=== PATIENT | male | born 1945 | race Caucasian/White ===

== ENCOUNTER → 2019-10-08 | Outpatient (CLI) | payer MEDICARE ==
[2019-10-08 16:52] LABS: Potassium 4.1 mmol/L (3.5-5.1)
[2019-10-08 17:02] LABS: Basophils # (A) 0.1 k/uL (0-0.2); Basophils % (A) 1 %; Eosinophils # (A) 0.2 k/uL (0-0.7); Eosinophils % (A) 2 %; HCT 38.2 % (39.0-53.0); Hypochromasia Slight; Lymphocytes # (A) 1.7 k/uL (1.0-4.8); Lymphocytes % (A) 14 %; MCHC 31.4 g/dL (31.0-37.0); Monocytes # (A) 0.6 k/uL (0-1.0); Monocytes % (A) 5 %; Neutrophils # (A) 9.3 k/uL (1.3-7.7); Neutrophils % (A) 77 %; Platelet Count 245 k/uL (150-450); RBC 4.29 m/uL (4.30-5.90); RDW 13.5 % (11.5-15.5)
--- NOTE | 2019-10-10 16:26 | XR ---
"EXAMINATION TYPE: XR chest 2V DATE OF EXAM: 10/08/2019 COMPARISON: NONE HISTORY: Presurgical TECHNIQUE: Frontal and lateral views of the chest are obtained. FINDINGS: Asymmetric increased density is present superimposed over the right lower lung on the front al view. There are increased lung volumes present consistent with underlying COPD. There are overlyin g artifacts. Biapical pleural thickening is present. Patient is rotated. Aorta is dense. Exam is limi maynor due to patient's inability to cooperate. There is no pleural effusion or pneumothorax seen. The cardiac silhouette size is within normal limits. The osseous structures are intact, suspect a spina l curvature. IMPRESSION: Difficult to exclude right lower lobe or right middle lobe lung mass, recommend chest CT A Yellow level critical message alert has been initiated for Desean Baig MD via the [employer] 36 0 | Critical Results System on 10/10/2019 4:23 PM. This message alert has been sent to Desean Baig MD via the preferences provided by the clinician for the receipt of Radiology Critical Findings. [facility] ID [id number]."
== END | disposition home or self-care (01) ==
LOC: LABPAT 16:02
PROVIDERS: ATTEND Orthopaedic Surgery
DX: Z01.818 Encounter for other preprocedural examination (principal); Z01.812 Encounter for preprocedural laboratory examination; S42.222D 2-part displaced fracture of surgical neck of left humerus, subsequent encounter for fracture with routine healing; Z51.81 Encounter for therapeutic drug level monitoring
CPT/HCPCS: 71046; 80051; 85025; 85610; 87070; 93005

== ENCOUNTER 2019-10-11 20:29 | Emergency (ER) | payer MEDICARE ==
[2019-10-11 20:48] VITALS: BP 162/93; PULSE 83; RESP 20; TEMP 98.4
--- NOTE | 2019-10-11 21:37 | XR ---
EXAMINATION TYPE: XR shoulder complete LT DATE OF EXAM: 10/11/2019 COMPARISON: NONE HISTORY: Edema. Pain. TECHNIQUE: 3 views FINDINGS: There is impacted comminuted left humeral neck fracture. There is more than 50% offset. The re is no dislocation. Scapula is intact. Clavicle appears intact. IMPRESSION: Comminuted impacted displaced humeral neck fracture.
--- NOTE | 2019-10-11 21:44 | XR ---
EXAMINATION TYPE: XR elbow limited LT DATE OF EXAM: 10/11/2019 COMPARISON: NONE HISTORY: Pain TECHNIQUE: 2 views FINDINGS: There is soft tissue swelling around the elbow joint. I see no fracture nor dislocation. Th ere is subcutaneous edema. IMPRESSION: Subcutaneous edema. No fracture seen.
[2019-10-11] MEDS ORDERED: MORPHINE SULFATE 2 MG/ML SYRINGE IM STA (21:50)
--- NOTE | 2019-10-11 22:13 | ED ---
Recheck HPI - General Chief Complaint: Recheck/Abnormal Lab/Rx Stated Complaint: Arm Injury Time Seen by Provider: 10/11/19 21:03 Source: patient Mode of arrival: ambulatory Limitations: no limitations - History of Present Illness Initial Comments: 73-year-old male with a recent diagnosis of left humerus fracture scheduled for surgery on Saturday presenting for persistent pain patient prescribed tramadol for pain management he states this is not working. Patient also states he has had increasing bruising and swelling distal to the area of fracture. Patient denies any anticoagulation use patient denies any rapid expansion over the course of our she states it has been gradually over the past 5 days since the fall on ice that caused the fracture. Patient denies any other ocmplaints. Denies wrist drop, denies loss of sensation or weakness, coolness or pallor of extremity. Remaining ROS (-)> upon arrival patient in sling. - Related Data Home Medications Medication Instructions Recorded Confirmed traMADol HCl [Ultram] 50 mg PO Q6HR PRN 10/09/19 10/09/19 Previous Rx's Medication Instructions Recorded HYDROcodone/APAP 5-325MG [[place] 5] 1 each PO Q6HR PRN 3 Days #12 tab 10/11/19 Allergies Allergy/AdvReac Type Severity Reaction Status Date / Time No Known Allergies Allergy Verified 10/11/19 20:48 Review of Systems ROS Statement: Those systems with pertinent positive or pertinent negative responses have been documented in the HPI. ROS Other: All systems not noted in ROS Statement are negative. Past Medical History Past Medical History: No Reported History History of Any Multi-Drug Resistant Organisms: None Reported Additional Past Surgical History / Comment(s): prostate, hernia Past Psychological History: No Psychological Hx Reported Smoking Status: Former smoker Past Alcohol Use History: None Reported Past Drug Use History: None Reported General Exam - General Exam Comments Initial Comments: General: The patient is awake and alert, in no distress Eye: +3 mm pupils are equal, round and reactive to light, extra-ocular movements are intact. No nystagmus. There is normal conjunctiva bilaterally. No signs of icterus. Ears, nose, mouth and throat: There are moist mucous membranes and no oral lesions. Neck: The neck is supple, there is no tenderness or JVD. Cardiovascular: There is a regular rate and rhythm. No murmur, rub or gallop is appreciated. Respiratory: Lungs are clear to auscultation, respirations are non-labored, breath sounds are equal. No wheezes, stridor, rales, or rhonchi. Gastrointestinal: Soft, non-distended, non-tender abdomen without masses or organomegaly noted. There is no rebound or guarding present. Musculoskeletal: Swelling of the left UE and ecchymosis of the entire length of extremity, some yellowing noted. Various staging of bruising. no expanding hematomas noted. Strong radial pulses strength at the elbow and wrist 5 out of 5. Sensation intact patient is able to make the okay fingers crossed thumbs-up and oppose the small digit and thumb. Pain over the mid humerus. Compartments are soft and compressible Neurological: A&O x 3. CN II-XII intact grossly, There are no obvious motor or sensory deficits. Coordination appears grossly intact. Speech is normal. Skin: Skin is warm and dry and no rashes or lesions are noted. Psychiatric: Cooperative, appropriate mood & affect, normal judgment. Limitations: no limitations Course Vital Signs 10/11/19 20:45 Temperature 98.4 F Pulse Rate 83 Respiratory 20 Rate Blood Pressure 162/93 O2 Sat by Pulse 98 Oximetry Medical Decision Making - Medical Decision Making 73-year-old male presenting for left arm pain after fracture. No new falls/injury. Fracture redemonstrated on imaging studies which are requested from family. No evidence of elbow fracture. I feel these findings are consistent with patient's diagnosis, he has been keeping his left arm in a downward position for the past 5 days. Patient has no physical exam findings consistent with compartment syndrome. There is no expanding hematomas. Patient is not on anticoagulations therapy today feel patient could have increase in narcotic regimen with [place] instead of Ultram I did discuss the discontinuation of Ultram with substitution of [place] for more satisfactory relief. Patient is agreeable to this Plan discussed risks involved with using [place]. Patient verbalized understanding patient was placed back in sling and instructed to follow up for surgery on Saturday as scheduled. Return parameters were discussed's custody's attending provider Dr. Rivera who reviewed imaging studies. Disposition Clinical Impression: Left humeral fracture, Hx of fall, Left arm swelling Disposition: HOME SELF-CARE Condition: Good Instructions (If sedation given, give patient instructions): R.I.C.E. Treatment (ED) Additional Instructions: Please use medication as discussed. Please follow-up with orthopedic surgery in saturday as discussed-stop tking ultram if taking norco. Please return to emergency room if the symptoms increase or worsen or for any other concerns. Prescriptions: HYDROcodone/APAP 5-325MG [[place] 5] 1 each PO Q6HR PRN 3 Days #12 tab PRN Reason: Severe Pain Is patient prescribed a controlled substance at d/c from ED?: Yes When asked, does pt state using other controlled substances?: Yes If prescribed controlled substance>3 days was MAPS reviewed?: Prescribed <3 Days If opioid is for acute pain is fill amount 7 days or less?: Yes If Rx opioid, was Start Talking consent form obtained?: Yes Referrals: None,Stated [Primary Care Provider] - 1-2 days Yoandy Godinez DO [Doctor of Osteopathic Medicine] - 1-2 days Time of Disposition: 22:12
== END 2019-10-11 22:30 | disposition home or self-care (01) ==
LOC: EC 20:29
DX: S42.292A Other displaced fracture of upper end of left humerus, initial encounter for closed fracture (principal); Z87.891 Personal history of nicotine dependence; W19.XXXA Unspecified fall, initial encounter
CPT/HCPCS: 73030; 73070; 99283; 96372; J2270

== ENCOUNTER 2019-10-13 14:44 | Inpatient (IN) | payer MEDICARE ==
--- NOTE | 2019-10-12 09:26 | HP ---
HISTORY AND PHYSICAL CHIEF COMPLAINT: Left shoulder pain. HISTORY OF PRESENT ILLNESS: The patient is a 73-year-old, right-hand dominant, retired gentleman who presents after injuring his left shoulder on 10/06/2019. He slipped and fell on the ice, landing on his left shoulder. He was initially seen in the emergency room and placed in a sling. He denies previous problems. He notes severe pain and limitation after the injury. PAST MEDICAL HISTORY: Negative. CURRENT MEDICATIONS: Tramadol. PAST SURGICAL HISTORY: Negative. He denies drug allergies. FAMILY HISTORY: Significant for cancer and heart disease. SOCIAL HISTORY: Significant for previous tobacco use; however, he quit in 1963. 16 POINT REVIEW OF SYSTEMS: Otherwise reviewed and is noncontributory. PHYSICAL EXAMINATION: On examination, the patient is approximately 5 foot 8, 130 pounds of ectomorphic habitus. HEENT exam is nonfocal. Neck is supple. On examination of his left shoulder, he has large anterior swelling. He is tender over the proximal humerus. He has severely limited motion secondary to pain. He is nontender about the left elbow and wrist. His distal neurovascular appears intact in the left upper extremity. X-rays of the left shoulder obtained in the office show a displaced 2-part proximal humerus fracture. IMPRESSION: Significantly displaced left 2-part proximal humerus fracture. RECOMMENDATIONS: I talked to the patient at length regarding his condition and treatment options. He opts to proceed with surgery. Operative options were discussed to include open reduction and internal fixation versus reverse shoulder arthroplasty. With the degree of initial displacement and his bone quality, he opts to proceed with reverse arthroplasty. Risks and benefits were discussed at length in layman's terms. Will institute DVT prophylaxis postoperatively. MMODL / IJN: [id number] /
[~2019-10-13 14:44] MED LIST: ACETAMINOPHEN TAB 500 MG TAB PO ONE; HYDROmorphone 0.5 MG/0.5 ML SYRINGE IVP PRN; LIDOCAINE 1% 20 ML VIAL (10MG/ML) FOR IV START INTRADERMA PRN; ONDANSETRON 4 MG/2 ML VIAL IVP ONE; ONDANSETRON 4 MG/2 ML VIAL IVP PRN; TRANEXAMIC ACID 1,000 MG in SODIUM CHLORIDE 0.9% 100 ML IVPB ONE
[2019-10-13] MEDS: LACTATED RINGERS 1,000 ML IV SCH (15:25)
[2019-10-13] MEDS: DEXAMETHASONE SOD PHOSPHATE 10 MG/ML 1 ML VIAL IV ONE ×2 (15:30→15:40)
[2019-10-13] MEDS: MELOXICAM 7.5 MG TAB PO ONE ×2 (15:30→15:40)
[2019-10-13] MEDS ORDERED: MIDAZOLAM 2 MG/2 ML VIAL IVP ONE (15:43)
[2019-10-13] MEDS ORDERED: GABAPENTIN 300 MG CAP PO STA (16:01)
--- NOTE | 2019-10-13 16:07 | P.ANPRN ---
Procedure Note - Anesthesia - Nerve Block Performed Left Interscalene Single Time Out Performed: Yes ([id number]) Date of Procedure: 10/13/19 Procedure Start Time: 15:42 Procedure Stop Time: 15:48 Location of Patient: PreOp Indication: Acute Post-Operative Pain, Requested by Surgeon Specifically requested for management of pain by : Desean Baig Sedation Type: Sedate with meaningful contact maintained Preparation: Sterile Prep Position: Supine Catheter: None Needle Types: Pajunk Needle Gauge: 21 Ultrasound used to visualize needle placement: Yes Ultrasound used to observe medication spread: Yes Injectate: 0.5% Ropivacaine (see comment for volume) (20cc) Blood Aspirated: No Pain Paresthesia on Injection Noted: No Resistance on Injection: Normal Image Stored and Saved: Yes Events: Uneventful and Well Tolerated
[2019-10-13] MEDS ORDERED: SUCCINYLCHOLINE CHLORIDE 100 MG/5 ML SYR IV ONE (16:16)
[2019-10-13] MEDS ORDERED: TRANEXAMIC ACID 1,000 MG/10 ML VIAL ONE (16:16)
[2019-10-13] MEDS ORDERED: PHENYLEPHRINE-0.9% NACL SYG 1 MG/10 ML SYRINGE ONE (16:16)
[2019-10-13] MEDS ORDERED: ROPIVACAINE 5 MG/ML 30 ML VIAL ONE (16:16)
[2019-10-13] MEDS ORDERED: ROCURONIUM BROMIDE 10 MG/ML 10 ML VIAL IV ONE (16:16)
[2019-10-13] MEDS ORDERED: MIDAZOLAM 2 MG/2 ML VIAL ONE (16:16)
[2019-10-13] MEDS ORDERED: ePHEDrine SULFATE/0.9% NACL/PF 50 MG/5 ML SYRINGE IV ONE (16:16)
[2019-10-13] MEDS ORDERED: fentaNYL (PF) 50 MCG/ML 2 ML AMP ONE (16:16)
[2019-10-13] MEDS ORDERED: PROPOFOL 10 MG/ML 20 ML VIAL IV ONE (16:16)
[2019-10-13] MEDS ORDERED: SODIUM CHLORIDE 0.9% 100 ML BAG ONE (16:16)
[2019-10-13] MEDS ORDERED: ceFAZolin 1,000 MG in SODIUM CHLORIDE 0.9% 1,000 ML IRRIGATION ONE (16:45)
[2019-10-13] MEDS ORDERED: LACTATED RINGERS 1,000 ML IV ONE (17:46)
[2019-10-13] MEDS ORDERED: HYDROcodone/APAP 5-325MG 1 EACH TAB PO PRN (18:04)
[2019-10-13] MEDS ORDERED: HYDROmorphone 0.5 MG/0.5 ML SYRINGE IVP PRN (18:04)
--- NOTE | 2019-10-13 18:32 | P.OP ---
Date of Procedure: 10/13/19 Preoperative Diagnosis: Displaced left proximal humerus fracture2 part Postoperative Diagnosis: Same Procedure(s) Performed: Left reverse total shoulder arthroplasty Implants: [employer] Xtend size 10 long cemented humeral stem with a size 1 epiphysis, 42+3 articular surface, 42 mm glenosphere with standard baseplate Anesthesia: elif ALANIZ Surgeon: Desean Baig Racing Secretary #1: Kailash Parker Estimated Blood Loss (ml): 200 Pathology: other (Humeral head) Condition: stable Disposition: PACU Indications for Procedure: The patient is a 73-year-old male who presents after falling injuring his left shoulder. Upon evaluation he was noted have a significantly displaced left 2 part proximal humerus fracture with significant osteopenia. A discussion of the risks and benefits of operative intervention was made with the patient and his family. Operative options were discussed including attempted open reduction and internal fixation versus reverse arthroplasty. The opted to proceed with reverse arthroplasty. Risks of surgery to include infection, neurovascular injury, possible refracture, possible instability and need for subsequent procedures was discussed. Informed consent was obtained. Operative Findings: As below Description of Procedure: The patient was brought to the operating room, and after induction of general anesthesia was placed in a beachchair position. The bony prominences were appropriately padded. The left upper extremity was prepped and draped in normal fashion. The bony outlines the coracoid process, distal clavicle, and acromion were outlined with a skin marker. A pulse centimeter deltopectoral incision was made lateral to the coracoid process. Skin was incised sharply. Subcutaneous tissues were divided bluntly. Electrocautery was used for hemostasis. The cephalic vein was identified and gently retracted laterally with the deltoid. The deltopectoral was bluntly developed. Subdeltoid adhesions were then released. The self-retaining retractor was placed. The conjoined tendon was retracted medially and the deltoid laterally. The biceps was identified. Its sheath was opened. A biceps tenotomy was performed along the remaining tendon did retract distally. The fracture site was identified. The greater and lesser tuberosities were and humeral head extracted. These were tagged with #2 Ethibond suture. The canal was reamed by hand up to size 10 long. There was good distal chatter. The cutting guide was then placed. I planned on 30 of retroversion. Attention was then paid towards preparing the glenoid. An anterior and posterior retractors placed. The labrum was released from the 6:00 to 12 o'clock position. Remaining biceps was removed as well. A guidepin was placed slightly inferior with and inferior tilt. The reamer was used down to a bleeding bony surface. The central peg hole was drilled. The standard baseplate was inserted with good purchase. Inferior, superior, and anterior locking screws the appropriate length were placed. Good purchase was obtained. The 42 mm glenosphere was inserted over a guidewire. This was fully seated. Care was taken to avoid any soft tissue interposition. Attention was then paid towards preparing the proximal humerus. The alignment clamp was placed on the proximal humeral shaft. A size 10 long stem was inserted planning on 30 of retroversion. This was placed the appropriate height judging off the tuberosities and conjoined tendon tension. Trial reduction was obtained with a 42 mm +3 articular surface. The shoulder was taken through range of motion. It was felt to be stable in flexion and extension with internal and external rotation. I felt there was adequate anabaptist of soft tissue tension judging off the conjoined tendon. The shoulder was gently dislocated. The trial components were then removed. The final size 10 long cemented stem along with a size 1 epiphysis was held in the appropriate length alignment with the clamp. After the cement had sufficiently hardened, clamp was removed. Trial reduction was again obtained with a 42 mm +3 articular surface. Again there was good stability in flexion and extension with internal and external rotation. The final 42+3 articular surface was placed and was fully seated. Pulsatile lavage was utilized. The tuberosities were reattached to each other with #2 Ethibond suture. The deltopectoral interval was closed with interrupted 2-0 Vicryl sutures. The skin was reapproximated with 3-0 subcuticular Prolene suture. Steri-Strips were applied. A sterile dressing was applied. A sling was placed. The patient was awoken from general anesthesia and transferred to recovery room in good condition. Blood loss was estimated at 200 mL. No complications were incurred. Sponge and needle counts were correct at the end the case. Andrew COMER assisted during the major components of the case to include exposure, glenoid and humeral preparation, implantation, and closure.
--- NOTE | 2019-10-13 18:56 | XR ---
EXAMINATION TYPE: XR shoulder limited LT DATE OF EXAM: 10/13/2019 COMPARISON: 10/11/2019 HISTORY: Surgery TECHNIQUE: Single view FINDINGS: There is a left shoulder prosthesis. Components appear in anatomic position. IMPRESSION: No complicating process seen.
[2019-10-13] MEDS: traMADol 50 MG TAB PO SCH (21:51)
--- NOTE | 2019-10-13 22:21 | P.CONS ---
History of Present Illness - Reason for Consult Consult date: 10/13/19 - History of Present Illness The patient is a 73 yo M with no significant PMH who was admitted to the hospital for a planned L shoulder arthroplasty. The patient reported that he suffered a fall on 10/06 when he slipped on ice, falling on his L shoulder. The patient had suffered a displaced fracture of the proximal humerus in 2 parts for which he underwent the procedure earlier today. The patient was seen post-operatively on the surgical unit. He reported excellent control of his pain, currently at a 0/10. He reported that he has been unable to move his arm since the procedure. Denied numbness or tingling or the L arm. He denied any additional complaints. Denied chest pain, SOB, fever, chills, nausea, vomiting, dizziness, or abdominal pain. Review of Systems Pertinent positives and negatives as discussed in HPI, a complete review of systems was performed and all other systems are negative. Past Medical History Past Medical History: No Reported History Additional Past Medical History / Comment(s): states "broken left shoulder" currently in sling History of Any Multi-Drug Resistant Organisms: None Reported Past Surgical History: No Surgical Hx Reported Additional Past Surgical History / Comment(s): prostate, hernia Past Anesthesia/Blood Transfusion Reactions: No Reported Reaction Past Psychological History: No Psychological Hx Reported Smoking Status: Former smoker Past Alcohol Use History: None Reported Past Drug Use History: None Reported Medications and Allergies Home Medications Medication Instructions Recorded Confirmed Type traMADol HCl [Ultram] 50 mg PO Q6HR PRN 10/09/19 10/13/19 History HYDROcodone/APAP 5-325MG [[place] 5] 1 each PO Q6HR PRN 3 Days #12 tab 10/11/19 10/13/19 Rx Allergies Allergy/AdvReac Type Severity Reaction Status Date / Time No Known Allergies Allergy Verified 10/13/19 15:21 Physical Exam Vitals: Vital Signs Temp Pulse Pulse Resp BP Pulse Ox 10/13/19 19:32 69 18 114/66 95 10/13/19 19:00 72 18 114/69 100 10/13/19 18:46 70 18 115/68 100 10/13/19 18:29 98 F 74 16 110/67 100 10/13/19 16:04 73 16 130/81 99 10/13/19 15:25 98.9 F 84 16 183/100 99 Intake and Output 10/13/19 10/13/19 10/13/19 06:59 14:59 22:59 Intake Total 1351 Output Total 200 Balance 1151 Intake: IV 1351 Output: Estimated Blood Loss 200 Other: Weight 50.4 kg General: thin M, non toxic, no distress, appears at stated age, normal weight Derm: no unusual rashes/lesions no unusual ecchymoses, warm, dry Head: atraumatic, normocephalic, symmetric Eyes: EOMI, no lid lag, anicteric sclera, pupils equal round reactive to light ENT: Nose and ears atraumatic, no thrush, no pharyngeal erythema Neck: No thyromegaly, no cervical lymphadenopathy, trachea midline, supple Mouth: no lip lesion, mucus membranes moist Cardiovascular: S1S2 reg, no murmur, positive posterior tibial pulse bilateral, no edema, capillary refill less than 2 seconds Lungs: CTA bilateral, no rhonchi, no rales , no accessory muscle use Abdominal: soft, nontender to palpation, no guarding, no appreciable organomegaly, normal bowel sounds Ext: L shoulder with dressing in place, no gross muscle atrophy, muscle strength 1/5 in LUE, strength 5 out of 5 in all other extremities grossly, no contractures Neuro: CN II-XI grossly intact, light touch intact all 4 extremities, finger to nose within normal limits, Psych: Alert, oriented, appropriate affect Assessment and Plan Plan: L humeral fracture s/p repair -Management including pain control as per orthopedic surgery Normocytic anemia -Expected outcome of Surgery -Monitor for now Abnormal EKG prior to surgery -Cardiac monitoring
[2019-10-13 23:16] LABS: African American GFR (CKD) >90 (>60 ml/min/1.73 sqM); Anion Gap 8 mmol/L; Blood Urea Nitrogen 17 mg/dL (9-20); Calcium 8.2 mg/dL (8.4-10.2); Carbon Dioxide 25 mmol/L (22-30); Chloride 101 mmol/L (98-107); Glucose 159 mg/dL (74-99); Non-African American GFR(CKD) >90 (>60 ml/min/1.73 sqM); Potassium 4.3 mmol/L (3.5-5.1); Sodium 134 mmol/L (137-145)
[2019-10-14] MEDS: HYDROcodone/APAP 5-325MG 1 EACH TAB PO PRN ×2 (04:55→23:30)
[2019-10-14] MEDS: LACTATED RINGERS 1,000 ML IV SCH (05:46)
[2019-10-14 08:18] LABS: Basophils # (A) 0.1 k/uL (0-0.2); Basophils % (A) 1 %; Eosinophils # (A) 0.1 k/uL (0-0.7); Eosinophils % (A) 1 %; HCT 34.1 % (39.0-53.0); HGB 10.7 gm/dL (13.0-17.5); Lymphocytes # (A) 1.5 k/uL (1.0-4.8); Lymphocytes % (A) 12 %; MCH 27.6 pg (25.0-35.0); MCHC 31.4 g/dL (31.0-37.0); MCV 87.8 fL (80.0-100.0); Mean Platelet Volume 9.5; Monocytes % (A) 8 %; Neutrophils # (A) 9.6 k/uL (1.3-7.7); Neutrophils % (A) 77 %; Platelet Count 270 k/uL (150-450); RBC 3.88 m/uL (4.30-5.90); RDW 13.5 % (11.5-15.5); WBC 12.5 k/uL (3.8-10.6)
[2019-10-14] MEDS: traMADol 50 MG TAB PO SCH ×4 (08:32→21:04)
--- NOTE | 2019-10-14 11:02 | P.PN ---
Subjective Chart was reviewed patient wasn't examined. Patient presented after recent fall with left fracture. He underwent elective left shoulder arthroplasty. He is recovering well pain is well-controlled has no new complaints. Patient has history of remote smoking and denies drinking. Objective - Vital Signs Vital signs: Vital Signs Temp 97.9 F 10/14/19 07:20 Pulse 68 10/14/19 07:20 Resp 16 10/14/19 07:20 BP 94/60 10/14/19 07:20 Pulse Ox 96 10/14/19 07:20 Intake & Output 10/13/19 10/14/19 10/14/19 18:59 06:59 18:59 Intake Total 1251 400 Output Total 200 200 Balance 1051 200 Weight 50.4 kg 50.4 kg Intake: IV 1251 100 Intake, IV Titration 300 Amount Lactated Ringers 1,000 ml 300 @ 0 mls/hr IV .[facility] Rx#:[id number] Output: Urine 200 Estimated Blood Loss 200 Other: Voiding Method Urinal # Voids 3 My - Exam Vital Signs: I have reviewed the vital signs. GENERAL: Well-nourished, Well-developed , no apparent distress, cooperative Eyes: PERRL, extraoculry movements intact, clear conjunctiva Head: : Atraumatic external nose and ears, oropharyngeal mucosa is moist without lesions or exudates Neck: Symmetric, trachea midline, No thyromegaly, no masses or neck vain pulsation, no neck rigidity CVS: +S1/S2, No murmurs or gallops. Peripheral pulses 2+ and equal in all extremities. RESP: Unlabored respiratory effort. Clear to auscultation bilaterally. Abdomen: Bowel sounds present in all 4 quadrants, Soft to palpation, Nontender/Nondistended, No hepatosplenomegaly, no hernias or masses, no CVA tnderness Musculoskeletal: Extremities w/o deformity, No cyanosis or clubbing, no joint swelling Skin: Warm, Dry. No rashes or lesions Neuro: cellar pumper II-XII grossly intact, motor strenght 5/5 i upper and lower extremities, no clonus, patellar DTRs 2+ and sympetrical Psych: Awake, Alert, & Oriented (AAO) x3 Appropriate mood and affect - Labs CBC & Chem 7: 10/14/19 07:08 10/13/19 22:56 Labs: Abnormal Lab Results - Last 24 Hours (Table) 10/13/19 10/14/19 Range/Units 22:56 07:08 WBC 12.5 H (3.8-10.6) k/uL RBC 3.88 L (4.30-5.90) m/uL Hgb 10.7 L (13.0-17.5) gm/dL Hct 34.1 L (39.0-53.0) % Neutrophils # 9.6 H (1.3-7.7) k/uL Sodium 134 L (137-145) mmol/L Creatinine 0.55 L (0.66-1.25) mg/dL Glucose 159 H (74-99) mg/dL Calcium 8.2 L (8.4-10.2) mg/dL Assessment and Plan Assessment: Patient with elective left shoulder arthroplasty. Recovering well. Blood work this morning shows stable anemia and no any other significant abnormalities. He does not have any significant home medications nor pre-existing medical problems. His blood pressures been on a softer side which is not unexpected for his body habitus and calm, not using pain medications. He is not on any blood pressure medications currently. He has been asymptomatic.
--- NOTE | 2019-10-14 12:23 | P.PN ---
Subjective Progress Note Date: 10/14/19 Principal diagnosis: Status post left total shoulder arthroplasty Patient evaluated today at bedside, he is resting comfortably. Patient has been up ambulating and doing fairly well. He is utilizing the arm sling. Denies any chest pain or shortness of breath. Objective - Vital Signs Vital signs: Vital Signs Temp 97.9 F 10/14/19 07:20 Pulse 68 10/14/19 07:20 Resp 16 10/14/19 07:20 BP 94/60 10/14/19 07:20 Pulse Ox 96 10/14/19 07:20 Intake & Output 10/13/19 10/14/19 10/14/19 18:59 06:59 18:59 Intake Total 1251 400 Output Total 200 200 Balance 1051 200 Weight 50.4 kg 50.4 kg Intake: IV 1251 100 Intake, IV Titration 300 Amount Lactated Ringers 1,000 ml 300 @ 0 mls/hr IV .[facility]K-[facility] ONE Rx#:[id number] Output: Urine 200 Estimated Blood Loss 200 Other: Voiding Method Urinal # Voids 3 - Exam Left upper extremity: Postoperative bandage was removed, incision is clean, dry and intact. Minimal soft tissue swelling and ecchymosis present throughout the arm. Sensory exam to light touch is intact throughout the extremity. Radial pulses 2+. - Labs CBC & Chem 7: 10/14/19 07:08 10/13/19 22:56 Labs: Abnormal Lab Results - Last 24 Hours (Table) 10/13/19 10/14/19 Range/Units 22:56 07:08 WBC 12.5 H (3.8-10.6) k/uL RBC 3.88 L (4.30-5.90) m/uL Hgb 10.7 L (13.0-17.5) gm/dL Hct 34.1 L (39.0-53.0) % Neutrophils # 9.6 H (1.3-7.7) k/uL Sodium 134 L (137-145) mmol/L Creatinine 0.55 L (0.66-1.25) mg/dL Glucose 159 H (74-99) mg/dL Calcium 8.2 L (8.4-10.2) mg/dL Assessment and Plan Plan: Assessment: Postoperative day #1 status post left reverse total shoulder arthroplasty Plan: Pain control, continue current medication GI and DVT prophylaxis, continue current medication Continue use of the arm sling Daily dressing changes Medical recommendations Plan for discharge home tomorrow Time with Patient: Less than 30
[2019-10-14] MEDS ORDERED: RX INFO: IV CONTRAST WAS GIVEN 1 EACH MISC MISCELLANE PRN (14:44)
--- NOTE | 2019-10-14 14:51 | P.CNPUL ---
History of Present Illness Consult date: 10/14/19 Reason for consult: abnormal CXR/CT History of present illness: This patient is 73, remote history of limited amount of smoking history, who was undergoing a preoperative chest x-ray and he was found to have a suspicious right lower lobe mass. For that reason a pulmonary consultation was requested. Noted the patient has already been admitted to the hospital and he underwent an elective left shoulder arthroplasty and is recovering well and the surgical wound site is dry clean and intact. He denies having any cough sputum production chest tightness or wheezing. He has positive weight loss. No other pulmonary symptoms such as hemoptysis or pleurisy. No recurrent pneumonias. No still child with asthma. Does not utilize any form of respiratory medications or inhalers. Review of Systems Constitutional: Reports weakness, Reports weight loss Eyes: denies as per HPI, denies blurred vision, denies bulging eye, denies decreased vision, denies diplopia, denies discharge, denies dry eye, denies irritation, denies itching, denies pain, denies photophobia, denies loss of peripheral vision, denies loss of vision, denies tunnel vision/blind spots Ears: deny: decreased hearing, ear discharge, earache, tinnitus Ears, nose, mouth and throat: Reports as per HPI Breasts: absent: as per HPI, gynecomastia Cardiovascular: Reports as per HPI Respiratory: Denies cough Gastrointestinal: Reports as per HPI Genitourinary: Reports as per HPI Musculoskeletal: Reports as per HPI ( fell on ice and he had and he underwent a left shoulder arthroplasty and the arms currently splinted.) Musculoskeletal: absent: ankle pain, ankle stiffness, ankle swelling Integumentary: Reports as per HPI Neurological: Reports as per HPI Psychiatric: Reports as per HPI Endocrine: Reports as per HPI Hematologic/Lymphatic: Reports as per HPI Allergic/Immunologic: Reports as per HPI Past Medical History Past Medical History: No Reported History Additional Past Medical History / Comment(s): Displaced fracture of the left proximal humerus following a fall History of Any Multi-Drug Resistant Organisms: None Reported Past Surgical History: No Surgical Hx Reported Additional Past Surgical History / Comment(s): prostate, hernia Past Anesthesia/Blood Transfusion Reactions: No Reported Reaction Past Psychological History: No Psychological Hx Reported Smoking Status: Former smoker Past Alcohol Use History: None Reported Past Drug Use History: None Reported - Past Family History Mother Family Medical History: Myocardial Infarction ([place]) Additional Family Medical History / Comment(s): of [place] Father Family Medical History: Myocardial Infarction ([place]) Additional Family Medical History / Comment(s): of [place] Medications and Allergies Home Medications Medication Instructions Recorded Confirmed Type traMADol HCl [Ultram] 50 mg PO Q6HR PRN 10/09/19 10/13/19 History HYDROcodone/APAP 5-325MG [Manor 5] 1 each PO Q6HR PRN 3 Days #12 tab 10/11/19 10/13/19 Rx Allergies Allergy/AdvReac Type Severity Reaction Status Date / Time No Known Allergies Allergy Verified 10/13/19 15:21 Physical Exam Vitals: Vital Signs Temp Pulse Pulse Resp BP Pulse Ox 10/14/19 07:20 97.9 F 68 16 94/60 96 10/14/19 02:31 98.0 F 74 17 93/60 96 10/13/19 22:00 67 99/66 96 10/13/19 21:45 75 96 10/13/19 21:30 65 132/117 96 10/13/19 21:15 67 105/66 96 10/13/19 21:00 66 104/65 96 10/13/19 20:45 67 113/64 95 10/13/19 20:30 67 110/69 95 10/13/19 20:15 76 132/80 96 10/13/19 20:00 97.4 F L 71 16 119/75 10/13/19 19:32 69 18 114/66 95 10/13/19 19:00 72 18 114/69 100 10/13/19 18:46 70 18 115/68 100 10/13/19 18:29 98 F 74 16 110/67 100 10/13/19 16:04 73 16 130/81 99 10/13/19 15:25 98.9 F 84 16 183/100 99 Intake and Output 10/13/19 10/14/19 10/14/19 22:59 06:59 14:59 Intake Total 1651 Output Total 400 Balance 1251 Intake: IV 1351 Intake, IV Titration 300 Amount Lactated Ringers 1,000 ml 300 @ 0 mls/hr IV .[facility] ONE Rx#:[id number] Output: Urine 200 Estimated Blood Loss 200 Other: Voiding Method Urinal # Voids 1 3 2 Weight 50.4 kg Cachectic thin elderly male patient who Is a BMI of 16.9 Head exam was generally normal. There was no scleral icterus or corneal arcus. Mucous membranes were moist. Neck was supple and without jugular venous distension, thyromegaly, or carotid bruits. Carotids were easily palpable bilaterally. There was no adenopathy. Poor dentition and the patient has multiple decayed and missing teeth. Lungs are elongated and there is diminished breath sounds otherwise clear. Cardiac exam revealed the PMI to be normally situated and sized. The rhythm was regular and no extrasystoles were noted during several minutes of auscultation. The first and second heart sounds were normal and physiologic splitting of the second heart sound was noted. There were no murmurs, rubs, clicks, or gallops. Abdomen abdomen Abdominal exam revealed normal bowel sounds. The abdomen was soft, non-tender, a nd without masses, organomegaly, or appreciable enlargement of the abdominal aorta. Left shoulder surgical wound site is dry clean and intact and the patient is neurovascularly intact in the left upper extremity. The rest of the extremities are intact no cyanosis or clubbing. Examination of the skin revealed no evidence of significant rashes, suspicious appearing nevi or other concerning lesions. neurologically the patient is awake and alert and there is no focal neurological deficits. Results - Laboratory Findings CBC and BMP: 10/14/19 07:08 10/13/19 22:56 Abnormal lab findings: Abnormal Labs 10/13/19 10/14/19 22:56 07:08 WBC 12.5 H RBC 3.88 L Hgb 10.7 L Hct 34.1 L Neutrophils # 9.6 H Sodium 134 L Creatinine 0.55 L Glucose 159 H Calcium 8.2 L - Diagnostic Findings Chest x-ray: image reviewed Assessment and Plan Plan: 1 abnormal chest x-ray with a suspicious right lower lobe density versus summation of shadows and the patient will need a CAT scan of the chest for further evaluation, overall suspicion for malignancy of the lung is low 2 fracture of the proximal left humerus following a left shoulder arthroplasty. The patient is postop day #1 3 chronic cachexia and weight loss with a BMI of 16.9. Plan Proceed with a computed tomography scan of the chest with contrast I will make further recommendations based on the results. Encouraged use of incentive spirometer.
[2019-10-14 16:11] VITALS: BMI 16.9
--- NOTE | 2019-10-14 17:00 | CT ---
EXAMINATION TYPE: CT chest w con DATE OF EXAM: 10/14/2019 COMPARISON: None HISTORY: abnormal CXR, rule out pulm mass CT DLP: 272.7 mGycm Automated exposure control for dose reduction was used. CONTRAST: Performed with IV Contrast, patient injected with 100 mL of Isovue 300. Multiple axial sections were obtained from the thoracic inlet to the diaphragm with intravenous contr ast. There is some reticular patchy interstitial infiltrate in the right middle lobe and to exclude lesser extent the lateral right upper lobe. There is no discrete pulmonary mass. There is small bilateral p leural effusions. Heart size is fairly normal. There is no pericardial effusion. There are no hilar m asses. There is no mediastinal adenopathy. 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 There is no dissection. There is left shoulder prosthesis. There is pulmonary hyperinflation and flattening of the diaphragm. There is no compression fracture in the thoracic spine. Impression COPD. Mild reticular interstitial infiltrate in the right middle lobe and right upper lobe. Small pl eural effusions. No suspicious pulmonary mass.
[2019-10-15 01:52] VITALS: RESP 17
[2019-10-15] MEDS: LACTATED RINGERS 1,000 ML IV SCH (01:55)
[2019-10-15] MEDS: traMADol 50 MG TAB PO SCH ×2 (08:37→13:25)
[2019-10-15 08:54] VITALS: BP 111/65; PULSE 97; TEMP 98
--- NOTE | 2019-10-15 09:56 | P.PN ---
Subjective Progress Note Date: 10/15/19 Principal diagnosis: Status post left total shoulder arthroplasty Patient evaluated today at bedside, he is resting comfortably. He is utilizing the arm sling. Denies any chest pain or shortness of breath. Objective - Vital Signs Vital signs: Vital Signs Temp 98 F 10/15/19 07:40 Pulse 97 10/15/19 07:40 Resp 17 10/15/19 07:40 BP 111/65 10/15/19 07:40 Pulse Ox 98 10/15/19 07:40 Intake & Output 10/14/19 10/15/19 10/15/19 18:59 06:59 18:59 Weight 50.4 kg Other: Voiding Method Toilet Toilet Urinal # Voids 2 2 - Exam Left upper extremity: Incision is clean, dry and intact. Minimal soft tissue swelling and ecchymosis present throughout the arm. Sensory exam to light touch is intact throughout the extremity. Radial pulses 2+. - Labs CBC & Chem 7: 10/14/19 07:08 10/13/19 22:56 Assessment and Plan Plan: Assessment: Postoperative day #2 status post left reverse total shoulder arthroplasty Plan: Pain control, continue current medication GI and DVT prophylaxis, aspirin 81 mg twice a day Continue use of the arm sling Daily dressing changes Medical recommendations Plan for discharge home today Time with Patient: Less than 30
--- NOTE | 2019-10-15 10:02 | P.DS ---
Providers Date of admission: 10/13/19 14:44 Expected date of discharge: 10/15/19 Attending physician: Desean Baig Consults: 10/13/19 18:09 Consult Physician Routine Consulting Provider: Hanna Griffin Consult Reason/Comments: abormal chest xray preop, right lung mass Do you want consulting provider notified?: Yes Consult Physician Routine Consulting Provider: Muriel Grant Consult Reason/Comments: Medical Management Do you want consulting provider notified?: Yes Primary care physician: Stated None Hospital Course: Date of admission: 10/13/2019 Date of discharge: 10/15/2019 Admission diagnosis: Status post reverse right total shoulder arthroplasty Discharge diagnosis: Same Attending physician: Dr. Baig Surgical procedures: Reverse right total shoulder arthroplasty Brief history: Patient is a 73-year-old male with a history of a recent fall that caused a 2 part proximal right humerus fracture. He was evaluated in the outpatient setting by Dr. Baig, it was determined he would need surgical intervention. He was scheduled for a reverse right total shoulder arthroplasty on 10/13/2019. Hospital course: Details of patient's surgery can be found in operative report. Patient tolerated the procedure well and was subsequently transported to orthopedic floor. Patient's orthopeidc and medical care was provided daily. Patient had daily laboratory tests performed for evaluation of overall blood counts. Patient had daily physical therapy to include strengthening range of motion as well as education with walker ambulation. Patient was noted to have a relatively uneventful postoperative course. Patient reported satisfactory pain control with oral pain medications by postoperative day 0. Patient showed satisfactory progress with physical therapy. Patient moved steadily through the program and had no difficulty meeting the goals by postoperative day 2. Given patient's otherwise satisfactory course and having met physical therapy goals, plan is to discharge patient home on postoperative day 2. Discharge condition/disposition: Patient will be discharged home in stable condition. Discharge medications: Instructions are given on resumption of patient's normal daily medications per primary care recommendation, in addition patient will be prescribed tramadol 50 mg, aspirin 81 mg. Discharge instructions: 1. Wound care and infection precautions, keep incision dry and covered while showering, no lotions, creams, moisturizers. No soaking, tubs, pools, hottubs. Do not scrub over the incision. 2. Utilize arm sling 3. Ice and elevate when necessary. Do not exceed 20 minutes per hour with ice pack. 4. Utilize compression sleeve until seen at first follow up appointment. 5. Visiting nursing care. 7. Pain meds and anticoagulants per prescription. 8. Pain medication has potential to cause constipation. Increase oral fluid and fiber intake. Contact primary care provider if you have not had a bowel movement within 48 hours after discharge 9. No anti-inflammatory medication until discussed at first post operative visit, this including Motrin, Aleve, Mobic, Diclofenac 10. Follow up in office at 2 weeks postop with Andrew Parker PA-C 11. Follow up with your primary care doctor 7-10 days after discharge. 12. Contact [facility] with any questions, . Procedures: Reverse left total shoulder arthroplasty Patient Condition at Discharge: Good Plan - Discharge Summary Discharge Rx Participant: No New Discharge Prescriptions: New Aspirin [Adult Low Dose Aspirin EC] 81 mg PO BID #30 tablet. traMADol HCl [Ultram] 50 mg PO Q6H PRN #28 tab PRN Reason: Pain No Action traMADol HCl [Ultram] 50 mg PO Q6HR PRN PRN Reason: Pain Discharge Medication List traMADol HCl [Ultram] 50 mg PO Q6HR PRN 10/09/19 [History] Aspirin [Adult Low Dose Aspirin EC] 81 mg PO BID #30 tablet. 10/15/19 [Rx] traMADol HCl [Ultram] 50 mg PO Q6H PRN #28 tab 10/15/19 [Rx] Follow up Appointment(s)/Referral(s): Kailash Parker PAC [PHYSICIAN CATERER'S AIDE] - 10/28/19 3:10 pm Activity/Diet/Wound Care/Special Instructions: Orthopedic discharge instructions: 1. Tramadol as needed for pain 2. [id number] Tylenol or ibuprofen as needed 3. Aspirin 81 mg twice a day for DVT prophylaxis 4. Utilize arm sling at all times 5. Keep incision covered and dry while showering 6. Plan for follow-up at [facility] in 2 weeks Discharge Disposition: HOME WITH HOME HEALTH SERVICES
--- NOTE | 2019-10-15 11:22 | P.PN ---
Subjective Progress Note Date: 10/15/19 The patient is doing well and has no specific complaints. I reviewed the CAT scan of the chest. It showed some limited inflammatory changes in the right middle lobe area. No evidence of any lung masses or tumors or lesions. Mediastinal history of any disease. The patient was reassured. No need for any further workup at this point in time. He is recovering from his shoulder surgery for now. Objective - Vital Signs Vital signs: Vital Signs Temp 98 F 10/15/19 07:40 Pulse 97 10/15/19 07:40 Resp 17 10/15/19 07:40 BP 111/65 10/15/19 07:40 Pulse Ox 98 10/15/19 07:40 Intake & Output 10/14/19 10/15/19 10/15/19 18:59 06:59 18:59 Weight 50.4 kg Other: Voiding Method Toilet Toilet Urinal # Voids 2 2 - Exam Cachectic thin elderly male patient who Is a BMI of 16.9 Head exam was generally normal. There was no scleral icterus or corneal arcus. Mucous membranes were moist. Neck was supple and without jugular venous distension, thyromegaly, or carotid bruits. Carotids were easily palpable bilaterally. There was no adenopathy. Poor dentition and the patient has multiple decayed and missing teeth. Lungs are elongated and there is diminished breath sounds otherwise clear. Cardiac exam revealed the PMI to be normally situated and sized. The rhythm was regular and no extrasystoles were noted during several minutes of auscultation. The first and second heart sounds were normal and physiologic splitting of the second heart sound was noted. There were no murmurs, rubs, clicks, or gallops. Abdomen abdomen Abdominal exam revealed normal bowel sounds. The abdomen was soft, non-tender, and without masses, organomegaly, or appreciable enlargement of the abdominal aorta. Left shoulder surgical wound site is dry clean and intact and the patient is neurovascularly intact in the left upper extremity. The rest of the extremities are intact no cyanosis or clubbing. Examination of the skin revealed no evidence of significant rashes, suspicious appearing nevi or other concerning lesions. neurologically the patient is awake and alert and there is no focal neurologica - Labs CBC & Chem 7: 10/14/19 07:08 10/13/19 22:56 Assessment and Plan Plan: 1 abnormal chest x-ray with a suspicious right lower lobe density versus summation of shadows with a negative CAT scan of the chest 2 fracture of the proximal left humerus following a left shoulder arthroplasty. The patient is postop day #2 3 chronic cachexia and weight loss with a BMI of 16.9. Plan CAT scan reviewed. No concern for malignancy. Reassured the patient. No need for further workup. Outpatient follow-up as needed
== END 2019-10-15 13:58 | disposition home or self-care (01) | DRG 483 ==
LOC: 2ORMAIN 14:44 → 4SSUR 18:29
PROVIDERS: ADMIT Orthopaedic Surgery; ATTEND Orthopaedic Surgery
PROC: 0RRK00Z Replacement of Left Shoulder Joint with Reverse Ball and Socket Synthetic Substitute, Open Approach (ICD-10-PCS; principal; 2019-10-13 16:15)
DX: S42.202A Unspecified fracture of upper end of left humerus, initial encounter for closed fracture (principal); R64 Cachexia; Z68.1 Body mass index [BMI] 19.9 or less, adult; M85.80 Other specified disorders of bone density and structure, unspecified site; D64.9 Anemia, unspecified; R91.8 Other nonspecific abnormal finding of lung field; Z87.891 Personal history of nicotine dependence; W00.0XXA Fall on same level due to ice and snow, initial encounter; Z82.49 Family history of ischemic heart disease and other diseases of the circulatory system
CPT/HCPCS: 64415; 71260; 76942; 80048; 85025; 88305; 88311; 96372; 99283

== ENCOUNTER 2022-02-13 09:09 | Emergency (ER) | payer MEDICARE ==
[2022-02-13 09:20] VITALS: TEMP 97.7
[2022-02-13 10:09] LABS: Basophils # (A) 0.1 k/uL (0-0.2); Basophils % (A) 0 %; Eosinophils # (A) 0.1 k/uL (0-0.7); Eosinophils % (A) 1 %; HCT 46.9 % (39.0-53.0); HGB 14.8 gm/dL (13.0-17.5); Lymphocytes # (A) 2.3 k/uL (1.0-4.8); Lymphocytes % (A) 16 %; MCH 27.8 pg (25.0-35.0); MCHC 31.5 g/dL (31.0-37.0); MCV 88.4 fL (80.0-100.0); Mean Platelet Volume 9.5; Monocytes # (A) 0.8 k/uL (0-1.0); Monocytes % (A) 5 %; Neutrophils # (A) 11.2 k/uL (1.3-7.7); Neutrophils % (A) 76 %; Partial Thromboplastin Time 25.6 sec (22.0-30.0); Platelet Count 404 k/uL (150-450); Prothrombin Time 11.1 sec (9.0-12.0); RDW 14.7 % (11.5-15.5); WBC 14.7 k/uL (3.8-10.6)
[2022-02-13 10:14] LABS: ALT 13 U/L (4-49); AST 25 U/L (17-59); African American GFR (CKD) >90 (>60 ml/min/1.73 sqM); Albumin 3.9 g/dL (3.5-5.0); Alkaline Phosphatase 104 U/L (38-126); Anion Gap 13 mmol/L; Blood Urea Nitrogen 27 mg/dL (9-20); Carbon Dioxide 23 mmol/L (22-30); Chloride 103 mmol/L (98-107); Glucose 97 mg/dL (74-99); Non-African American GFR(CKD) 88 (>60 ml/min/1.73 sqM); Potassium 3.9 mmol/L (3.5-5.1); Sodium 139 mmol/L (137-145); Total Bilirubin 1.2 mg/dL (0.2-1.3); Total Protein 7.9 g/dL (6.3-8.2)
[2022-02-13] MEDS ORDERED: SODIUM CHLORIDE 0.9% 500 ML 500 ML IV STA (11:30)
--- NOTE | 2022-02-13 12:33 | XR ---
EXAMINATION TYPE: XR chest 2V DATE OF EXAM: 02/13/2022 COMPARISON: Chest x-ray and CT chest September 2019 HISTORY: Difficulty in breathing. TECHNIQUE: Frontal and lateral views of the chest are obtained. FINDINGS: There is background chronic emphysematous change with new areas of increased opacity in th e right lower lung 2 views involving the right middle lobe and lower lobe. Left lung remains clear. No pleural effusion or pneumothorax seen bilaterally. The cardiac silhouette size remains within norm al limits. Surgical change left shoulder is partially imaged. New lateral 1.3 cm left midlung pulmona ry nodule. Nonemergent pulmonary CT follow-up is advised. IMPRESSION: Chronic emphysematous change with new right middle and lower lobe acute infiltrates.
--- NOTE | 2022-02-13 13:02 | ED ---
General Adult HPI - General Chief complaint: Dizziness Stated complaint: lightheaded, SOB Time Seen by Provider: 02/13/22 11:08 Source: patient, family, RN notes reviewed, old records reviewed Mode of arrival: ambulatory Limitations: no limitations - History of Present Illness Initial comments: Patient is a 76-year-old male presenting to the emergency department with his niece over complaints of shortness of breath increasing over the past 4 days. Patient also had a little bit of nausea about 4 days ago but none since then. He states he is very active, normally goes out for walks. Over the past 3-4 days, he's been getting short of breath on these walks. No cough. He denies any dizziness or lightheadedness, no chest pain, no abdominal pain, no vomiting or diarrhea. He states his been eating and drinking as normal. Of note, patient states he did had a little bit episode of lightheadedness yesterday while at his niece's house. Currently he is asymptomatic. He denies any new medications, he denies taking any medications whatsoever. He states is fairly healthy. Patient has not had covid vaccine or flu shot. Patient has no further complaints. His vitals are stable upon arrival. - Related Data Home Medications Medication Instructions Recorded Confirmed traMADol HCl [Ultram] 50 mg PO Q6HR PRN 10/09/19 10/13/19 Previous Rx's Medication Instructions Recorded Aspirin [Adult Low Dose Aspirin EC] 81 mg PO BID #30 tablet. 10/15/19 traMADol HCl [Ultram] 50 mg PO Q6H PRN #28 tab 10/15/19 Albuterol Inhaler [Ventolin Hfa 1 puff INHALATION RT-QID PRN #8 gm 02/13/22 Inhaler] Amoxicillin/Potassium Clav 1 tab PO BID 5 Days #10 tab 02/13/22 [Augmentin 875-125 Tablet] Azithromycin [Zithromax Z-pack (6 0 mg PO DIRECTED #6 tab 02/13/22 tabs)] Allergies Allergy/AdvReac Type Severity Reaction Status Date / Time No Known Allergies Allergy Verified 02/13/22 09:20 Review of Systems ROS Statement: Those systems with pertinent positive or pertinent negative responses have been documented in the HPI. ROS Other: All systems not noted in ROS Statement are negative. Past Medical History Past Medical History: No Reported History Additional Past Medical History / Comment(s): Displaced fracture of the left proximal humerus following a fall History of Any Multi-Drug Resistant Organisms: None Reported Past Surgical History: No Surgical Hx Reported Additional Past Surgical History / Comment(s): prostate, hernia Past Anesthesia/Blood Transfusion Reactions: No Reported Reaction Past Psychological History: No Psychological Hx Reported Smoking Status: Never smoker Past Alcohol Use History: None Reported Past Drug Use History: None Reported - Past Family History Mother Family Medical History: Myocardial Infarction ([place]) Additional Family Medical History / Comment(s): of [place] Father Family Medical History: Myocardial Infarction ([place]) Additional Family Medical History / Comment(s): of [place] General Exam - General Exam Comments Initial Comments: GENERAL: Patient is well-developed and well-nourished. Patient is nontoxic and in no acute distress. HEAD: Atraumatic, normocephalic. EYES: Pupils equal round and reactive to light, extraocular movements intact, sclera anicteric, conjunctiva are normal. Eyelids were unremarkable. ENT: TMs normal, nares patent, oropharynx clear without exudates. Moist mucous membranes. NECK: Normal range of motion, supple without lymphadenopathy or JVD. LUNGS: Unlabored respirations. Breath sounds clear to auscultation bilaterally and equal. No wheezes rales or rhonchi. HEART: Irregular rate and rhythm without murmurs, rubs or gallops. ABDOMEN: Soft, nontender, normoactive bowel sounds. No guarding, no rebound. No masses appreciated. MUSCULOSKELETAL: Normal extremities with adequate strength and normal range of motion, no pitting or edema. No clubbing or cyanosis. NEUROLOGICAL: Patient is alert and oriented x 3. Motor and sensory are also intact. Cranial nerves II through XII grossly intact. Symmetrical smile. Normal speech, normal gait. PSYCH: Normal mood, normal affect. SKIN: Warm, Dry, normal turgor, no rashes or lesions noted. Limitations: no limitations Course Vital Signs 02/13/22 09:16 Temperature 97.7 F Pulse Rate 81 Respiratory 16 Rate Blood Pressure 133/99 O2 Sat by Pulse 96 Oximetry EKG Findings - EKG Comments: EKG Findings:: Sinus rhythm with frequent supraventricular premature complexes, possible left atrial enlargement, incomplete right bundle, ST and T-wave abnormalities. Compared to previous on 10/08/19, slightly worse. Medical Decision Making - Medical Decision Making Patient 76-year-old male here with worsening shortness of breath over the past 4 days. No chest pain. Vitals are stable upon arrival, his exam is unremarkable. Laboratory studies show a slight white count of 14.7, troponin is normal, BNP is 1100. Covid test is negative. Chest x-ray showing chronic emphysematous changes with new right middle and lower lobe acute infiltrates. Note made of a new lateral 1.3 cm left mid lung pulmonary nodule, recommended nonemergent CT follow-up. Patient was informed of his results. We did discuss admitting to observation for antibiotics and further workup however patient adamantly declines. Patient does not want to stay in the hospital. We discussed the risks that are involved with going home including worsening infection, possibility of . Wants to go home. Patient will be started on antibiotics for pneumonia as well as an inhaler for some shortness of breath. We discussed in detail return parameters, patient and patient's niece are agreeable. - Lab Data Result diagrams: 02/13/22 09:35 02/13/22 09:35 Lab Results 02/13/22 02/13/22 02/13/22 Range/Units 09:35 09:35 09:35 WBC 14.7 H (3.8-10.6) k/uL RBC 5.30 (4.30-5.90) m/uL Hgb 14.8 (13.0-17.5) gm/dL Hct 46.9 (39.0-53.0) % MCV 88.4 (80.0-100.0) fL MCH 27.8 (25.0-35.0) pg MCHC 31.5 (31.0-37.0) g/dL RDW 14.7 (11.5-15.5) % Plt Count 404 (150-450) k/uL MPV 9.5 Neutrophils % 76 % Lymphocytes % 16 % Monocytes % 5 % Eosinophils % 1 % Basophils % 0 % Neutrophils # 11.2 H (1.3-7.7) k/uL Lymphocytes # 2.3 (1.0-4.8) k/uL Monocytes # 0.8 (0-1.0) k/uL Eosinophils # 0.1 (0-0.7) k/uL Basophils # 0.1 (0-0.2) k/uL PT 11.1 (9.0-12.0) sec INR 1.0 (<1.2) APTT 25.6 (22.0-30.0) sec Sodium 139 (137-145) mmol/L Potassium 3.9 (3.5-5.1) mmol/L Chloride 103 (98-107) mmol/L Carbon Dioxide 23 (22-30) mmol/L Anion Gap 13 mmol/L BUN 27 H (9-20) mg/dL Creatinine 0.77 (0.66-1.25) mg/dL Est GFR (CKD-EPI)AfAm >90 (>60 ml/min/1.73 sqM) Est GFR (CKD-EPI)NonAf 88 (>60 ml/min/1.73 sqM) Glucose 97 (74-99) mg/dL Calcium 9.0 (8.4-10.2) mg/dL Total Bilirubin 1.2 (0.2-1.3) mg/dL AST 25 (17-59) U/L ALT 13 (4-49) U/L Alkaline Phosphatase 104 (38-126) U/L Troponin I (0.000-0.034) ng/mL NT-Pro-B Natriuret Pep pg/mL Total Protein 7.9 (6.3-8.2) g/dL Albumin 3.9 (3.5-5.0) g/dL Coronavirus (PCR) (Not Detectd) 02/13/22 02/13/22 02/13/22 Range/Units 09:35 09:35 11:42 WBC (3.8-10.6) k/uL RBC (4.30-5.90) m/uL Hgb (13.0-17.5) gm/dL Hct (39.0-53.0) % MCV (80.0-100.0) fL MCH (25.0-35.0) pg MCHC (31.0-37.0) g/dL RDW (11.5-15.5) % Plt Count (150-450) k/uL MPV Neutrophils % % Lymphocytes % % Monocytes % % Eosinophils % % Basophils % % Neutrophils # (1.3-7.7) k/uL Lymphocytes # (1.0-4.8) k/uL Monocytes # (0-1.0) k/uL Eosinophils # (0-0.7) k/uL Basophils # (0-0.2) k/uL PT (9.0-12.0) sec INR (<1.2) APTT (22.0-30.0) sec Sodium (137-145) mmol/L Potassium (3.5-5.1) mmol/L Chloride (98-107) mmol/L Carbon Dioxide (22-30) mmol/L Anion Gap mmol/L BUN (9-20) mg/dL Creatinine (0.66-1.25) mg/dL Est GFR (CKD-EPI)AfAm (>60 ml/min/1.73 sqM) Est GFR (CKD-EPI)NonAf (>60 ml/min/1.73 sqM) Glucose (74-99) mg/dL Calcium (8.4-10.2) mg/dL Total Bilirubin (0.2-1.3) mg/dL AST (17-59) U/L ALT (4-49) U/L Alkaline Phosphatase (38-126) U/L Troponin I <0.012 (0.000-0.034) ng/mL NT-Pro-B Natriuret Pep 1100 pg/mL Total Protein (6.3-8.2) g/dL Albumin (3.5-5.0) g/dL Coronavirus (PCR) Not Detected (Not Detectd) Disposition Clinical Impression: Pneumonia Disposition: HOME SELF-CARE Condition: Stable Instructions (If sedation given, give patient instructions): Community Acquired Pneumonia (ED) Additional Instructions: Please return to the Emergency Department if symptoms worsen or any other concerns. Take antibiotic as prescribed, make sure to finish the entire course. Use inhaler as needed for shortness of breath. Prescriptions: Amoxicillin/Potassium Clav [Augmentin 875-125 Tablet] 1 tab PO BID 5 Days #10 tab Albuterol Inhaler [Ventolin Hfa Inhaler] 1 puff INHALATION RT-QID PRN #8 gm PRN Reason: Shortness Of Breath Azithromycin [Zithromax Z-pack (6 tabs)] 0 mg PO DIRECTED #6 tab Is patient prescribed a controlled substance at d/c from ED?: No Referrals: None,Stated [Primary Care Provider] - 1-2 days Time of Disposition: 13:38
[2022-02-13 13:41] LABS: Appearance,Urine Clear (Clear); Bilirubin,Urine Negative (Negative); Blood,Urine Negative (Negative); Color,Urine Yellow; Glucose,Urine (UA) Negative (Negative); Hyaline Casts,Urine 1 /lpf (0-2); Ketones,Urine 1+ (Negative); Leukocyte Esterase,Urine Negative (Negative); Mucus,Urine Many /hpf; Nitrite,Urine Negative (Negative); PH, Urine 5.5 (5.0-8.0); Protein,Urine 1+ (Negative); RBC,Urine 1 /hpf (0-5); Specific Gravity,Urine 1.034 (1.001-1.035); Squamous Epithelial Cell,Urine 1 /hpf (0-4); WBC,Urine 2 /hpf (0-5)
[2022-02-13 13:52] VITALS: BP 145/87; PULSE 56; RESP 19
== END 2022-02-13 13:52 | disposition home or self-care (01) ==
LOC: EC 09:09
DX: J18.9 Pneumonia, unspecified organism (principal); Z82.49 Family history of ischemic heart disease and other diseases of the circulatory system
CPT/HCPCS: 36415; 71046; 80053; 81001; 83880; 84484; 85025; 85610; 85730; 87635; 93005